=== PATIENT | male | born 1965 | race Caucasian/White ===

== ENCOUNTER 2022-05-05 08:29 | Outpatient (CLI) | payer BC, SELFPAY ==
--- NOTE | 2022-05-05 08:50 | ECHO_ITS ---
Patient Info Name: Nikhil Knox Age: 56 years : 1965 Gender: Male Ht: 71 in Wt: 210 lbs BSA: 2.21 m2 HR: 88 bpm BP: 162 / 98 mmHg Technical Quality: Good Exam Date: 05/05/2022 9:12 AM Exam Location: [facility] Patient Status: Outpatient Admit Date: 05/05/2022 Staff Ordering Physician: Ghislaine Hagen PA-C Weaving Machine Operator: Sylvia Brunson RDCS Attending Provider: Ghislaine Hagen PA-C Referring Physician: Xiao CORRALES; Exam Type: CA echo doppler color flow Study Info Indications R00.2 - Palpitations Complete two-dimensional, color flow and Doppler transthoracic echocardiogram is performed. Summary 1. Complete two-dimensional, color flow and Doppler transthoracic echocardiogram is performed. 2. Left ventricular chamber dimension is mildly enlarged. 3. Basal inferior/posterior bowling are hypokinetic. 4. Left ventricular systolic function is preserved, estimated at 50-55%. 5. The left ventricular diastolic function is grade I diastolic dysfunction. 6. E/e' 8 is minimally elevated. 7. Global longitudinal strain is abnormal at -14.3%. 8. Left atrial chamber dimension is mildly enlarged. 9. There is moderate aortic valve sclerosis. 10. There is mild aortic valve regurgitation. 11. There is mild mitral valve regurgitation. 12. There is trace tricuspid valve regurgitation. 13. No pulmonary hypertension, estimated pulmonary arterial systolic pressure is 31 mmHg. Left Ventricle Left ventricular systolic function is preserved, estimated at 50-55%. E/e' 8 is minimally elevated. Basal inferior/posterior bowling are hypokinetic. Global longitudinal strain is abnormal at -14.3%. Left ventricular chamber dimension is mildly enlarged. The left ventricular diastolic function is grade I diastolic dysfunction. Right Ventricle Right ventricular systolic function is normal and with normal TAPSE 2.4 cm. Right ventricular chamber dimension is normal. Left Atria Left atrial chamber dimension is mildly enlarged. Right Atria Right atrial chamber dimension is normal. Aortic Valve The aortic valve is trileaflet. There is moderate aortic valve sclerosis. There is no aortic valve stenosis. There is mild aortic valve regurgitation. Pulmonic Valve There is no pulmonic regurgitation. Mitral Valve There is no mitral valve stenosis. There is mild mitral valve regurgitation. Tricuspid Valve There is trace tricuspid valve regurgitation. No pulmonary hypertension, estimated pulmonary arterial systolic pressure is 31 mmHg. Pericardium/Pleural There is no pericardial effusion. Inferior Vena Cava Normal inferior vena cava with >50% collapse upon inspiration consistent with normal right atrial pressure, 5 mmHg. Aorta The aortic root size at the sinus of Valsalva is normal. Left Ventricular Outflow Tract Name Value Normal LVOT 2D LVOT Diameter 2.3 cm LVOT Doppler LVOT Peak Gradient 4 mmHg LVOT Mean Gradient 3 mmHg LVOT VTI 23 cm LVOT VTI/AV VTI Ratio 0.7
--- NOTE | 2022-05-09 12:33 | WPDHOLTEREM ---
Holter/Event Monitor Holter/Event Monitor Date of procedure: 05/05/22 Holter/Event Procedure: 24 Hr Holter Monitor Indications: Palpitations Conclusion: 1. 24 hour holter monitor on 05/05/22. 2. Underlying rhythm is sinus rhythm. HR range 52-117 bpm; average HR 76 bpm. 3. There are 9 premature supraventricular complexes. No supraventricular tachycardia. 4. There are 12,193 premature ventricular complexes, 3 ventricular couplets, 6 ventricular bigeminy and 8,150 ventricular trigeminy. No ventricular tachycardia. 5. No sinoatrial or atrioventricular blocks. No significant pauses greater than 2 seconds. 6. No symptoms available for correlation.
== END 2022-05-05 08:30 | disposition home or self-care (01) ==
PROVIDERS: PCP Physician Assistant Medical; Visit Provider Physician Assistant Medical
DX: R00.2 Palpitations (principal)
CPT/HCPCS: 93225; 93226; 93306

== ENCOUNTER 2023-03-06 08:56 | Outpatient (CLI) | payer BC, SELFPAY ==
[2023-03-06 18:34] LABS: Alanine Aminotransferase 35 U/L (6-50); Albumin Level 4.6 g/dL (3.5-5.1); Alkaline Phosphatase 51 U/L (38-126); Anion Gap 6 mmol/L (8-16); Aspartate Amino Transferase 45 U/L (17-59); Bilirubin,Total 0.7 mg/dL (0.2-1.3); Blood Urea Nitrogen 13 mg/dL (9-20); Calcium 9.4 mg/dL (8.4-10.2); Carbon Dioxide 30 mmol/L (22-30); Chloride 101 mmol/L (98-107); Cholesterol 211 mg/dL (0-200); Estimated Glomerular Filt Rate > 60; Glucose 93 mg/dL (65-110); HDL Direct 49 mg/dL; Potassium 4.7 mmol/L (3.4-5.0); Sodium 137 mmol/L (137-145); Triglycerides 191 mg/dL (<150)
[2023-03-06 18:45] LABS: LDL Cholesterol Direct 105 mg/dL
[2023-03-06 19:08] LABS: Prostate Specific Antigen 2.2 ng/mL (< OR = 4.0); Thyroid Stimulating Hormone 0.545 uIU/mL (0.465-4.680)
[2023-03-06 19:56] LABS: Basophils Absolute Auto 0.1 K/mm3 (0.0-0.1); Basophils Percent Auto 0.6 % (0.2-1.2); Eosinophils Absolute Auto 0.2 K/mm3 (0-0.3); Eosinophils Percent Auto 2.3 % (0-4.4); Hematocrit 54.1 % (42.0-52.0); Hemoglobin 17.4 g/dL (14.0-18.0); Immature Granulocyte Absolute 0.03 K/mm3 (0.00-0.031); Immature Granulocyte Percent A 0.4 % (0-0.5); Lymphocytes Absolute Auto 2.77 K/mm3 (0.9-3.2); Lymphocytes Percent Auto 34.7 % (18.3-44.2); Mean Corpuscular HGB Conc 32.2 g/dl (32-36); Mean Corpuscular Hemoglobin 28.9 pg (26-34); Mean Corpuscular Volume 89.9 fl (80-100); Mean Platelet Volume 9.3 fl (7.4-10.4); Monocytes Absolute Auto 0.5 K/mm3 (0.1-0.6); Monocytes Percent Auto 6.6 % (2.6-8.5); Neutrophils Absolute Auto 4.4 K/mm3 (1.3-6.7); Neutrophils Percent Auto 55.4 % (45.5-73.1); Platelet Count Result 267 k/mm3 (150-375); Red Blood Count 6.02 M/mm3 (4.6-6.20); Red Cell Distribution Width 14.2 % (11.5-14.5)
[2023-03-10 13:25] LABS: Testosterone Free 141.4 pg/mL (35.0-155.0); Testosterone Total 640 ng/dL (250-1100)
== END 2023-03-06 08:57 | disposition home or self-care (01) ==
LOC: ANHGOSHLAB 08:57
PROVIDERS: PCP Internal Medicine; Visit Provider Nurse Practitioner
DX: R53.83 Other fatigue (principal); Z12.5 Encounter for screening for malignant neoplasm of prostate; Z13.220 Encounter for screening for lipoid disorders; Z13.29 Encounter for screening for other suspected endocrine disorder
CPT/HCPCS: 36415; 80053; 80061; 84153; 84402; 84403; 84443; 85025; G0103

== ENCOUNTER 2023-04-11 04:00 | Day surgery (SDC) | payer BC, SELFPAY ==
[2023-04-05 10:27] VITALS: BMI 32.6
--- NOTE | 2023-04-05 12:08 | PC.NURSE ---
pt requested no anesthesia and explained to him pro's and con's- still would like to have proc. without if possible. After speaking with doctors an anesthesia they will not do procedures without anesthesia and this was explained to patient and he is in agreement to proceed with proc. under anesthesia.
--- NOTE | 2023-04-11 11:10 | SUR.PREOP ---
Patient requested that he not have anesthesia for his procedure. Dr. Coombs and Dr. Hall to bedside to speak with patient. Per MDs, okay to proceed with procedure with no anesthesia. Explained to patient that he will need to communicate with Dr. Coombs if for some reason he was not able to complete procedure. Patient accepts and understands. Will monitor patient at bedside during procedure.
[2023-04-11 11:11] VITALS: BP 162/104; PULSE 119; RESP 18; TEMP 36.6; O2SAT 100
[2023-04-11] MEDS: LACTATED RINGERS 1,000 ML 150 ML IV CONT (11:21)
--- NOTE | 2023-04-11 11:27 | PM.HPGS ---
History of Present Illness History of Present Illness Consent: Risks, benefits, and alternatives have been discussed and questions answered. Patient agrees to proceed with procedure. Chief complaint: neoplasm screening Narrative: Nikhil Knox is a 57 year old male here for screening colonoscopy, last one at 47 yo. He prefers without anesthesia. Review of Systems Constitutional: Constitutional: Denies headache(s) and Denies weakness Eyes: Eyes: Denies blurry vision ENT: Reports Normal hearing present, Denies headache(s) and Denies neck pain Cardiovascular: Cardiovascular: Denies chest pain and Denies dyspnea Respiratory: Respiratory: Denies dyspnea Gastrointestinal: Gastrointestinal: Reports no additional gastrointestinal complaints Genitourinary: Genitourinary: Denies dysuria Musculoskeletal: Musculoskeletal: Denies neck pain Integumentary/Breasts: Skin/Breast: Denies dry skin Neurologic: Reports Normal hearing present, Denies headache(s) and Denies weakness Psychiatric: Psychiatric: Denies anxiety Endocrine: Endocrine: Denies change in body appearance Hematologic/Lymphatic: Hematologic/Lymphatic: Denies easy bleeding Allergic/Immunologic: Allergic/Immunologic: Denies urticaria PMFSH Past Medical History Medical History Aortic stenosis moderate Bigeminy Lyme disease PVCs (premature ventricular contractions) Family History Family History Father Hypertension Grandparent Hypertension Heart disease Social History Social History Smoking status: Never smoker Alcohol intake: current Alcohol use details: rare Substance use: never Substance use type: does not use Lack of Transportation: No Lack of Food: Never True Current Housing: I Have Housing Concerned About Future Housing: No Difficulty Paying Gas/Electric Bills: No Difficulty Paying for Meds: No Currently Unemployed: No Education: Master's Degree or Higher Difficulty w/ Childcare or Family Care: No Living arrangements: with family Occupation/Education: occupation Gender identity (if verbalized by the patient): Male Sexual Orientation (if Verbalized by the Patient): Straight or Heterosexual Spiritual care concerns: No Meds Home Medications and Allergies Home Medications Medication Instructions Recorded Confirmed Type multivitamin (Multiple Vitamins 1 tablet PO DAILY 03/01/23 04/11/23 History tablet) omega-3 fatty acids [Fish Oil] 1 cap PO DAILY 03/01/23 04/11/23 History needle (disp) 18 G 18 gauge x 1 #100 ea 03/12/23 04/11/23 Rx (BD Regular Bevel [place]) syringe with needle 3 mL 25 x 1 #100 ea 03/12/23 04/11/23 Rx 1/2 (BD Luer-Kathi Syringe) testosterone cypionate 200 mg/mL 150 mg (0.75 mL) IM WEEKLY #10 mL 03/12/23 04/11/23 Rx intramuscular oil Daily Probiotic 1 cap PO EVERY OTHER DAY 04/05/23 04/11/23 History vitamin D3-vitamin K2 1 cap PO DAILY 04/05/23 04/11/23 History Allergies Allergy/AdvReac Type Severity Reaction Status Date / Time No Known Allergies Allergy Verified 04/11/23 11:06 Vital Signs Vital Signs - 24 hr 04/11/23 11:11 Temperature 97.9 F Pulse Rate 119 H Respiratory Rate 18 Blood Pressure 162/104 H Pulse Oximetry 100 Oxygen Delivery Room Air Exam Const: General: comfortable and no acute distress HENMT: Face/Nose/Sinus: Normal nares present Eyes: General: appearance normal, both eyes and all related structures Neck: Neck: no JVD Resp: Auscultation: clear to auscultation bilaterally Cardio: Rate: regular rate Rhythm: regular rhythm GI: Inspection: non-distended GI Palp: Yes Soft to palpation Skin: General skin exam: normal color Neuro: General: gait normal Speech: normal speech Extrem: General: normal to inspection Psych: Mental Status: mental sta
[2023-04-11 11:35] VITALS: BP 172/130; PULSE 116; RESP 26; O2SAT 98
[2023-04-11 11:45] VITALS: BP 174/116; PULSE 94; RESP 18; O2SAT 98
[2023-04-11 11:48] VITALS: BP 144/101; PULSE 92; RESP 19; O2SAT 98
== END 2023-04-11 12:11 | disposition home or self-care (01) ==
PROVIDERS: PCP Internal Medicine; Visit Provider Internal Medicine Gastroenterology
PROC: 0DJD8ZZ Inspection of Lower Intestinal Tract, Via Natural or Artificial Opening Endoscopic (ICD-10-PCS; CPT 45378; principal; 2023-04-11 12:30)
DX: Z12.11 Encounter for screening for malignant neoplasm of colon (principal); K63.5 Polyp of colon
CPT/HCPCS: 45385; 88305; J7120

== ENCOUNTER 2023-08-07 10:53 | Outpatient (CLI) | payer BC, SELFPAY ==
[2023-08-07 14:38] LABS: Basophils Absolute Auto 0.1 K/mm3 (0.0-0.1); Basophils Percent Auto 0.8 % (0.2-1.2); Eosinophils Absolute Auto 0.1 K/mm3 (0-0.3); Hematocrit 54.1 % (42.0-52.0); Hemoglobin 17.5 g/dL (14.0-18.0); Immature Granulocyte Absolute 0.02 K/mm3 (0.00-0.031); Immature Granulocyte Percent A 0.3 % (0-0.5); Lymphocytes Absolute Auto 2.38 K/mm3 (0.9-3.2); Lymphocytes Percent Auto 31.1 % (18.3-44.2); Mean Corpuscular HGB Conc 32.3 g/dl (32-36); Mean Corpuscular Volume 89.6 fl (80-100); Mean Platelet Volume 10.3 fl (7.4-10.4); Monocytes Absolute Auto 0.6 K/mm3 (0.1-0.6); Monocytes Percent Auto 8.1 % (2.6-8.5); Neutrophils Absolute Auto 4.5 K/mm3 (1.3-6.7); Neutrophils Percent Auto 58.7 % (45.5-73.1); Platelet Count Result 242 k/mm3 (150-375); Red Blood Count 6.04 M/mm3 (4.6-6.20); Red Cell Distribution Width 14.1 % (11.5-14.5); White Blood Count 7.7 K/mm3 (4.5-10.0)
[2023-08-07 14:45] LABS: Alanine Aminotransferase 26 U/L (6-50); Albumin Level 4.5 g/dL (3.5-5.1); Alkaline Phosphatase 49 U/L (38-126); Anion Gap 6 mmol/L (4-12); Aspartate Amino Transferase 68 U/L (17-59); Bilirubin,Total 0.8 mg/dL (0.2-1.3); Blood Urea Nitrogen 12 mg/dL (9-20); Calcium 9.1 mg/dL (8.4-10.2); Carbon Dioxide 31 mmol/L (22-30); Chloride 100 mmol/L (98-107); Estimated Glomerular Filt Rate > 60; Glucose 98 mg/dL (65-110); Potassium 4.4 mmol/L (3.4-5.0); Sodium 137 mmol/L (137-145)
[2023-08-07 15:34] LABS: Prostate Specific Antigen 2.4 ng/mL (< OR = 4.0)
[2023-08-13 19:45] LABS: Testosterone Free 184.9 pg/mL (35.0-155.0); Testosterone Total 818 ng/dL (250-1100)
== END 2023-08-07 10:54 | disposition home or self-care (01) ==
LOC: ANHGOSHLAB 10:54
PROVIDERS: PCP Internal Medicine; Visit Provider Internal Medicine
DX: E29.1 Testicular hypofunction (principal); Z12.5 Encounter for screening for malignant neoplasm of prostate; Z79.890 Hormone replacement therapy
CPT/HCPCS: 36415; 80053; 84153; 84402; 84403; 85025

== ENCOUNTER 2023-12-18 08:05 | Outpatient (CLI) | payer BC, SELFPAY ==
[2023-12-18 19:11] LABS: Iron 198 ug/dL (49-181)
[2023-12-18 19:16] LABS: Hematocrit 54.6 % (42.0-52.0); Hemoglobin 17.9 g/dL (14.0-18.0); Mean Corpuscular HGB Conc 32.8 g/dl (32-36); Mean Corpuscular Hemoglobin 29.1 pg (26-34); Mean Corpuscular Volume 88.6 fl (80-100); Platelet Count Result 257 k/mm3 (150-375); Red Blood Count 6.16 M/mm3 (4.6-6.20); White Blood Count 6.6 K/mm3 (4.5-10.0)
[2023-12-18 19:21] LABS: Percent Iron Saturation 58 % (20-50)
[2023-12-18 19:40] LABS: Alanine Aminotransferase 30 U/L (6-50); Albumin Level 4.5 g/dL (3.5-5.1); Alkaline Phosphatase 55 U/L (38-126); Anion Gap 10 mmol/L (4-12); Aspartate Amino Transferase 38 U/L (17-59); Bilirubin,Total 1.1 mg/dL (0.2-1.3); Blood Urea Nitrogen 15 mg/dL (9-20); Calcium 9.4 mg/dL (8.4-10.2); Carbon Dioxide 30 mmol/L (22-30); Chloride 97 mmol/L (98-107); Estimated Glomerular Filt Rate > 60; Glucose 76 mg/dL (65-110); Potassium 4.5 mmol/L (3.4-5.0); Sodium 137 mmol/L (137-145)
[2023-12-18 20:06] LABS: Hepatitis C Virus Antibody Negative (Negative); Prostate Specific Antigen 3.5 ng/mL (< OR = 4.0)
[2023-12-21 16:33] LABS: Testosterone Free 237.4 pg/mL (35.0-155.0); Testosterone Total 904 ng/dL (250-1100)
== END 2023-12-18 08:06 | disposition home or self-care (01) ==
LOC: ANHGOSHLAB 08:06
PROVIDERS: PCP Internal Medicine; Visit Provider Internal Medicine
DX: R74.01 Elevation of levels of liver transaminase levels (principal); E29.1 Testicular hypofunction; R74.8 Abnormal levels of other serum enzymes; Z12.5 Encounter for screening for malignant neoplasm of prostate; Z79.890 Hormone replacement therapy
CPT/HCPCS: 36415; 80053; 82248; 82728; 83540; 83550; 84153; 84402; 84403; 85027; 86803

== ENCOUNTER 2023-12-25 08:40 | Outpatient (CLI) | payer BC, SELFPAY ==
[2023-12-25 15:03] LABS: Kit Draw Collected
== END 2023-12-25 08:41 | disposition home or self-care (01) ==
LOC: ANHGOSHLAB 08:41
PROVIDERS: PCP Internal Medicine; Visit Provider Internal Medicine
DX: R74.8 Abnormal levels of other serum enzymes (principal); E29.1 Testicular hypofunction; Z12.5 Encounter for screening for malignant neoplasm of prostate; Z79.890 Hormone replacement therapy
CPT/HCPCS: 36415